=== PATIENT | female | born 1980 | race American Indian/Alaskan Native ===

== ENCOUNTER 2018-10-19 17:39 | Emergency (ER) | payer OTHER ==
[2018-10-19 17:49] VITALS: BP 150/95
[2018-10-19 18:33] LABS: Basophils # (Auto) 0.1 K/mm3 (0.0-0.1); Basophils % (Auto) 1.3 % (0.0-1.8); Eosinophils # (Auto) 0.1 K/mm3 (0.0-0.4); Eosinophils % (Auto) 1.7 % (0.0-4.3); Hematocrit 42.6 % (30.3-42.9); Hemoglobin 14.6 gm/dl (10.1-14.3); Lymphocytes # (Auto) 1.9 K/mm3 (1.2-5.4); Lymphocytes % (Auto) 22.4 % (13.4-35.0); Mean Corpuscular HGB Conc 34 % (30-34); Mean Corpuscular Volume 100 fl (79-97); Monocytes # (Auto) 0.7 K/mm3 (0.0-0.8); Monocytes % (Auto) 8.7 % (0.0-7.3); Platelet Count 233 K/mm3 (140-440); Red Blood Count 4.29 M/mm3 (3.65-5.03)
[2018-10-19 18:49] LABS: Alanine Aminotransferase 17 units/L (7-56); BUN/Creatinine Ratio 14; Blood Urea Nitrogen 11 mg/dL (7-17); Calcium 9.9 mg/dL (8.4-10.2); Hemolysis Index 9
[2018-10-19 19:28] LABS: Bilirubin,Urine NEG (Negative); Blood,Urine NEG (Negative); Color,Urine Straw (Yellow); Protein,Urine <15 mg/dL mg/dL (Negative); Urobilinogen,Urine < 2.0 mg/dL (<2.0); WBC,Urine < 1.0 /HPF (0.0-6.0)
[2018-10-19] MEDS ORDERED: ATIVAN PO ONE (20:00)
--- NOTE | 2018-10-19 20:05 | Emergency Department Report ---
ED General Adult HPI - General Chief complaint: Dyspnea/Respdistress Stated complaint: SOB/TINGLE UPPER NECK Time Seen by Provider: 10/19/18 19:44 Source: patient Mode of arrival: Ambulatory Limitations: No Limitations - History of Present Illness Initial comments: Patient is a 37-year-old -Indian female who presents for anxiety shortness of breath rest or distress intermittent for the past year states symptoms come on intermittently generally when stuck in a lot of traffic she noticed panic and she'll have shortness of breath there is no shortness of breath no chest pain no nausea vomiting or diaphoresis at this time last episode was early today coming home from school patient denies syncope no syncopal episode Patient denies SI or HI there is no fever or chills no nausea vomiting symptoms are relieved by rest and avoiding triggers patient has not seen psychiatrist was concerned will refer to same after ruling out cardiac and respi ratory concerns Onset/Timin -: year(s) Location: neck Radiation: neck Severity scale (0 -10): 4 Quality: other (tingling ) Consistency: intermittent Improves with: rest Worsens with: other (anxiety ) Associated Symptoms: shortness of breath Treatments Prior to Arrival: none - Related Data Previous Rx's Medication Instructions Recorded Last Taken Type hydrOXYzine HCL [Atarax] 25 mg PO Q6H PRN #15 tablet 10/19/18 Unknown Rx Allergies Allergy/AdvReac Type Severity Reaction Status Date / Time No Known Allergies Allergy Unverified 10/19/18 17:49 ED Review of Systems ROS: Stated complaint: SOB/TINGLE UPPER NECK Other details as noted in HPI Constitutional: denies: chills, fever Eyes: denies: eye pain, eye discharge, vision change ENT: denies: ear pain, throat pain Respiratory: denies: cough, shortness of breath, wheezing Cardiovascular: denies: chest pain, palpitations Endocrine: no symptoms reported Gastrointestinal: denies: abdominal pain, nausea, diarrhea Genitourinary: denies: urgency, dysuria, discharge Musculoskeletal: denies: back pain, joint swelling, arthralgia Skin: denies: rash, lesions Neurological: denies: headache, weakness, numbness, paresthesias, confusion, abnormal gait, vertigo Psychiatric: denies: anxiety, depression Hematological/Lymphatic: denies: easy bleeding, easy bruising ED Past Medical Hx - Past Medical History Previous Medical History?: No - Surgical History Past Surgical History?: No - Social History Smoking Status: Current Every Day Smoker Substance Use Type: Alcohol - Medications Home Medications: Home Medications Medication Instructions Recorded Confirmed Last Taken Type hydrOXYzine HCL [Atarax] 25 mg PO Q6H PRN #15 tablet 10/19/18 Unknown Rx ED Physical Exam - General Limitations: No Limitations General appearance: alert, in no apparent distress - Head Head exam: Present: atraumatic, normocephalic - Eye Eye exam: Present: normal appearance, PERRL, EOMI Pupils: Present: normal accommodation - ENT ENT exam: Present: normal exam, normal orophraynx, mucous membranes moist, TM's normal bilaterally, normal external ear exam - Neck Neck exam: Present: normal inspection, full ROM. Absent: tenderness, meningismus, lymphadenopathy, thyromegaly - Expanded Neck Exam Expanded Neck exam: Absent: tenderness, midline deformity, anterior neck swelling, thyroid mass, carotid bruit, tracheal deviation - Respiratory Respiratory exam: Present: normal lung sounds bilaterally. Absent: respiratory distress, wheezes, stridor, chest wall tenderness, prolonged expiratory - Cardiovascular Cardiovascular Exam: Present: regular rate, normal rhythm, normal heart sounds. Absent: systolic murmur, diastolic murmur, rubs, gallop - GI/Abdominal GI/Abdominal exam: Present: soft, normal bowel sounds - Rectal Rectal exam: Present: deferred - Extremities Exam Extremities exam: Present: normal inspection, full ROM, normal capillary refill. Absent: tenderness (baby little. Management), pedal edema, joint swelling, calf tenderness - Back Exam Back exam: Present: normal inspection, full ROM. Absent: tenderness, CVA tenderness (R), CVA tenderness (L), muscle spasm, paraspinal tenderness, vertebral tenderness, rash noted - Neurological Exam Neurological exam: Present: alert, oriented X3, CN II-XII intact, normal gait, reflexes normal. Absent: abnormal gait, motor sensory deficit - Psychiatric Psychiatric exam: Present: anxious. Absent: homicidal ideation, suicidal ideation - Skin Skin exam: Present: warm, dry, intact, normal color. Absent: rash ED Course Vital Signs 10/19/18 17:42 Temperature 98.3 F Pulse Rate 89 Respiratory 18 Rate Blood Pressure 150/95 O2 Sat by Pulse 100 Oximetry ED Medical Decision Making - Lab Data Result diagrams: 10/19/18 18:01 10/19/18 18:01 - EKG Data EKG shows normal: sinus rhythm Rate: normal - EKG Data When compared to previous EKG there are: other (no previous ekg ) Interpretation: normal EKG (interp by ed attending ) - Radiology Data Radiology results: report reviewed, image reviewed Findings [facility] [address] [place] [address] XRay Report Signed Patient: MILY VICTORIA MR#: [id number] : 1980 Acct:[id number] Age/Sex: 37 / F ADM Date: 10/19/18 Loc: ED Attending Dr: Ordering Physician: JOSEFINA MEYER Date of Service: 10/19/18 Procedure(s): XR chest routine 2V Accession Number(s): [id number] cc: JOSEFINA MEYER Fluoro Time In Minutes: FINAL REPORT PROCEDURE: XR CHEST ROUTINE 2V TECHNIQUE: PA and lateral chest radiographs were obtained. CPT 84956 HISTORY: SOB COMPARISON: No prior studies are available for comparison. FINDINGS: Heart: Normal. Mediastinum/Vessels: Normal. Lungs/Pleural space: Normal. Bony thorax: No acute osseous abnormality. Other: IMPRESSION: Normal examination. - Medical Decision Making Perc PE: 1, EKG is normal chest x-ray is normal labs are symptoms or reduced with Ativan by mouth given in ED, there is no concern for PE, pt is ambulatory from room to main ed and return to room hr: 75, O2 sat 100% room air, lungs are clear throughout. there is no resp distress, no accessory muscle use, this is likely anxiety related discussed with patient prescription for Atarax when ne cessary anxiety patient will follow-up with PCP N psychiatry patient will return to ED should symptoms worsen or return, pt verbalized agreement and understanding of discharge plan. Critical care attestation.: If time is entered above; I have spent that time in minutes in the direct care of this critically ill patient, excluding procedure time. ED Disposition Clinical Impression: Anxiety Disposition: DC-01 TO HOME OR SELFCARE Is pt being admited?: No Does the pt Need Aspirin: No Condition: Stable Instructions: Anxiety (ED) Prescriptions: hydrOXYzine HCL [Atarax] 25 mg PO Q6H PRN #15 tablet PRN Reason: Anxiety Referrals: CRISTINO VELASCO MD [Primary Care Provider] - 3-5 Days Forms: Work/School Release Form(ED) Time of Disposition: 21:34
--- NOTE | 2018-10-19 21:13 | XRay Report ---
FINAL REPORT PROCEDURE: XR CHEST ROUTINE 2V TECHNIQUE: PA and lateral chest radiographs were obtained. CPT 08901 HISTORY: SOB COMPARISON: No prior studies are available for comparison. FINDINGS: Heart: Normal. Mediastinum/Vessels: Normal. Lungs/Pleural space: Normal. Bony thorax: No acute osseous abnormality. Other: IMPRESSION: Normal examination.
== END 2018-10-19 21:40 | disposition home or self-care (01) ==
LOC: ED 17:39
DX: F41.9 Anxiety disorder, unspecified (principal); F17.200 Nicotine dependence, unspecified, uncomplicated
CPT/HCPCS: 36415; 71046; 80053; 81001; 84703; 85025; 93005; 93010

== ENCOUNTER 2019-11-01 11:05 | Emergency (ER) | payer SELFPAY ==
--- NOTE | 2019-11-01 12:12 | Emergency Department Report ---
ED Chest Pain HPI - General Chief Complaint: Upper Respiratory Infection Stated Complaint: CHEST PAIN WHEN MOVING Time Seen by Provider: 11/01/19 12:08 Source: patient Mode of arrival: Ambulatory Limitations: No Limitations - History of Present Illness Initial Comments: Ms. Wilkerson is a healthy 38 yo female who presents with chest pain with moving and certain positions. +productive cough with chills. Hx of tobacco abuse. Achy pain. PCP provided inhaler [address] Bessie Crenshaw has had chest pain related to anxiety MD Complaint: chest pain -: Gradual, days(s) (1) Onset: during rest Pain Location: substernal, right chest Severity: moderate Quality: aching, sharp Consistency: constant Worsens With: movement Other Symptoms: cough - Related Data Previous Rx's Medication Instructions Recorded Last Taken Type hydrOXYzine HCL [Atarax] 25 mg PO Q6H PRN #15 tablet 10/19/18 Unknown Rx Azithromycin [Zithromax Z-BART] 1 tab PO DAILY 5 Days #6 tablet 11/01/19 Unknown Rx predniSONE [Deltasone] 3 tab PO QDAY 3 Days #9 tab 11/01/19 Unknown Rx Allergies Allergy/AdvReac Type Severity Reaction Status Date / Time No Known Allergies Allergy Unverified 10/19/18 17:49 Heart Score - HEART Score History: Slightly suspicious EKG: Normal Age: < 45 Risk factors: No known risk factors Troponin: < normal limit HEART Score: 0 ED Review of Systems ROS: Stated complaint: CHEST PAIN WHEN MOVING Other details as noted in HPI Comment: All other systems reviewed and negative Constitutional: denies: fever, malaise Respiratory: cough, shortness of breath Cardiovascular: chest pain ED Past Medical Hx - Past Medical History Previous Medical History?: No - Surgical History Past Surgical History?: Yes Additional Surgical History: D&C - Family History Family history: hypertension, other (grandmother CHF) - Social History Smoking Status: Current Every Day Smoker Substance Use Type: Alcohol - Medications Home Medications: Home Medications Medication Instructions Recorded Confirmed Last Taken Type hydrOXYzine HCL [Atarax] 25 mg PO Q6H PRN #15 tablet 10/19/18 Unknown Rx Azithromycin [Zithromax Z-BART] 1 tab PO DAILY 5 Days #6 tablet 11/01/19 Unknown Rx predniSONE [Deltasone] 3 tab PO QDAY 3 Days #9 tab 11/01/19 Unknown Rx ED Physical Exam - General Limitations: No Limitations General appearance: alert, in no apparent distress - Head Head exam: Present: atraumatic, normocephalic - Eye Eye exam: Present: normal appearance - ENT ENT exam: Present: mucous membranes moist - Neck Neck exam: Present: normal inspection, full ROM - Respiratory Respiratory exam: Present: normal lung sounds bilaterally. Absent: respiratory distress, wheezes, rales, rhonchi - Cardiovascular Cardiovascular Exam: Present: regular rate, normal rhythm, normal heart sounds. Absent: systolic murmur, diastolic murmur, rubs, gallop - GI/Abdominal GI/Abdominal exam: Present: soft, normal bowel sounds. Absent: distended, tenderness, guarding, rebound - Extremities Exam Extremities exam: Present: normal inspection - Back Exam Back exam: Present: normal inspection - Neurological Exam Neurological exam: Present: alert, oriented X3 - Psychiatric Psychiatric exam: Present: normal affect, normal mood - Skin Skin exam: Present: warm, dry, intact, normal color. Absent: rash ED Medical Decision Making - Medical Decision Making acute bronchitis chest wall pain PERC negative. Do not suspect PE or ACS rx: azithromycin prednisone smoking cessation Critical care attestation.: If time is entered above; I have spent that time in minutes in the direct care of this critically ill patient, excluding procedure time. ED Disposition Clinical Impression: Acute bronchitis, Chest wall pain Disposition: DC-01 TO HOME OR SELFCARE Is pt being admited?: No Does the pt Need Aspirin: No Condition: Stable Instructions: Acute Bronchitis (ED), Chest Pain (ED) Prescriptions: predniSONE [Deltasone] 3 tab PO QDAY 3 Days #9 tab Azithromycin [Zithromax Z-BART] 1 tab PO DAILY 5 Days #6 tablet
[2019-11-01 12:16] VITALS: BP 122/84
== END 2019-11-01 12:46 | disposition home or self-care (01) ==
LOC: ED 11:05
DX: J20.9 Acute bronchitis, unspecified (principal); R07.89 Other chest pain; F17.200 Nicotine dependence, unspecified, uncomplicated; Z98.890 Other specified postprocedural states; Z79.899 Other long term (current) drug therapy
CPT/HCPCS: 99282